=== PATIENT | male | born 1950 | race Caucasian/White ===

== ENCOUNTER 2019-12-25 15:58 | Emergency (ER) | payer MEDICARE, OTHER, SELFPAY ==
[2019-12-25] VITALS (7 sets, daily range): BP systolic 124–152; BP diastolic 70–79; PULSE 56–86; RESP 16–18; TEMP 36.8; O2SAT 94–97; BMI 21.1
--- NOTE | 2019-12-25 16:25 | CTR_ITS ---
PROCEDURE INFORMATION: Exam: CT Abdomen And Pelvis With Contrast Exam date and time: 12/25/2019 4:39 PM Age: 69 years old Clinical indication: Abdominal pain; Localized; Left lower quadrant (llq); Prior surgery; Surgery date: 6+ months; Surgery type: Bicycle Racer shunt; Patient HX: C/O llq abd pain w n/v since this morning TECHNIQUE: Imaging protocol: Computed tomography of the abdomen and pelvis with intravenous contrast. Total DLP: 490.34 mGy-cm Radiation optimization: All CT scans at this facility use at least one of these dose optimization techniques: automated exposure control; mA and/or kV adjustment per patient size (includes targeted exams where dose is matched to clinical indication); or iterative reconstruction. Contrast material: VISI 320; Contrast volume: 95 ml; Contrast route: 20G; COMPARISON: No relevant prior studies available. FINDINGS: Tubes, catheters and devices: There is a SOCCER BALL ASSEMBLER shunt catheter in the abdomen. Liver: There is a 9 mm sized simple cyst in the left lobe of the liver. Gallbladder and bile ducts: There is a calcified gallstone in the gallbladder. Pancreas: Normal. No ductal dilation. Spleen: The spleen is normal. Adrenals: Normal. No mass. Kidneys and ureters: There is a 7 mm benign cyst in the lower pole of the right kidney. There is no evidence of right hydronephrosis. There is moderate left hydronephrosis and there is perinephric stranding and delay in excretion of contrast on the left consistent with obstruction. There is a 6 mm mm size maximum diameter stone in the distal left ureter less than 2 cm from the ureterovesical junction with density of over 1000 Hounsfield units and visible on the cost and risk analysis manager image also. Stomach and bowel: Unremarkable. No obstruction. No mucosal thickening. Appendix: No evidence of appendicitis. Intraperitoneal space: Unremarkable. No free air. No significant fluid collection. Vasculature: Unremarkable. No abdominal aortic aneurysm. Lymph nodes: Unremarkable. No enlarged lymph nodes. Bladder: There is mild thickening of the wall of the urinary bladder which could be due to hypertrophy from chronic outlet obstruction. Reproductive: The prostate demonstrates moderate nonspecific enlargement. The prostate gland demonstrates nonspecific parenchymal calcifications. The seminal vesicles are normal. Bones/joints: The lumbar spine demonstrates mild degenerative changes at multiple levels. Soft tissues: Unremarkable. CT/CT abdomen pelvis w con* [id number] IMPRESSION: Obstructing stone in the distal left ureter COMMENTS: Consistent with the [employer]'s Incidental Findings Committee white paper (J Am Cynthia Radiol 2018): Any incidental cystic renal lesion classified in this report as too small to characterize or simple appearing is likely a benign cyst. No follow-up imaging is recommended for these lesions per consensus recommendations based on imaging criteria. Radiation Dose CTDIVOL = (mGy): DLP = 490.34 (mGy-cm)
--- NOTE | 2019-12-25 16:39 | W.ED.ABDPA2 ---
HPI - Abdominal Pain General: Chief Complaint: Abdominal Pain Stated Complaint: n/v, back pain Time Seen by Provider: 12/25/19 16:13 Source: patient Mode of arrival: ambulatory Limitations: no limitations History of Present Illness: HPI narrative: 69-year-old male with left lower quadrant pain that started 6 AM. He states pain is sharp in nature. Denies any worsening improving factors at this time. Denies any vomiting or diarrhea but has had slight nausea. MD elicited complaint: abdominal pain Pertinent past history: none Onset (ago): hour(s) Pain Consistency: constant Location: LLQ Severity: moderate Quality: stabbing Radiation: none Exacerbating factors: nothing Relieving factors: nothing Associated Symptoms: Denies chills, dysuria and fever(s) Review of Systems Const: Denies: fever, chills, body aches or change in appetite Eyes: Denies: blurry vision or eye discomfort ENMT: Denies: throat pain or dental pain Card: Denies: chest pain Resp: Denies: shortness of breath GI: Reports: abdominal pain : Denies: painful urination Musc: Denies: neck pain or back pain Skin/Breast: Denies: rash Neuro: Denies: headache Psych: Denies: depression Srinivasa/Lymph: Denies: easy bruising All/Imm: Denies: hives PFSH ED PFSH: Social History Smoking and tobacco status: never smoked Physical Exam Const: COMMON NORMALS: no apparent distress, oriented x3 and healthy appearing HENMT: COMMON NORMALS: normocephalic and head/scalp atraumatic HEAD & SCALP: normocephalic and atraumatic Eye: COMMON NORMALS: PERRL and EOMs intact bilaterally PUPIL: Yes PERRL Neck/C-Spine: COMMON NORMALS: full ROM and supple Chest: COMMONS NORMALS: inspection of chest normal and palpation of chest normal Resp: COMMON NORMALS: normal respiratory effort, no retractions, no use of accessory muscles and clear to auscultation bilaterally AUSCULTATION: clear to auscultation bilaterally Cardio: COMMON NORMALS: regular rate, regular rhythm and no murmurs RATE: regular rate RHYTHM: regular rhythm GI: COMMON NORMALS: normal to inspection, nondistended, normoactive bowel sounds, soft to palpation and no masses PALPATION: Yes soft and Yes tender Details: LLQ Extremity: COMMON NORMALS: normal to inspection and full ROM Neuro: COMMON NORMALS: oriented x3, moves all extremities and no focal motor deficits Psych: COMMON NORMALS: mental status grossly normal, thought process normal and cooperative THOUGHT PROCESS: normal thought process Skin: COMMON NORMALS: no rashes or lesions noted and no wounds GENERAL SKIN EXAM: no rashes or lesions noted Course Vital Signs: Vital signs: Vital Signs Temperature 98.2 F 12/25/19 16:09 Pulse Rate 86 12/25/19 19:00 Respiratory Rate 16 12/25/19 19:00 Blood Pressure 124/79 12/25/19 19:00 Pulse Oximetry 94 12/25/19 19:00 MDM - Abdominal Pain MDM Narrative: Medical decision making narrative: Patient presents here with abdominal pain is found to have a kidney stone. Stone is small and he should be able to pass it. We will place him on pain meds and nausea meds and I will have him follow-up with urology. Patient discharged with a strainer and is return to ER if worsening. He understands and agrees the plan. Lab Data: Labs: Lab Results 12/25/19 12/25/19 12/25/19 Range/Units 16:45 16:45 17:19 WBC 11.3 H (4.0-10.0) 10^3/ uL RBC 4.67 (4.1-5.3) 10^6/u L Hgb 14.5 (11.7-16.6) g/dL Hct 44.3 (42.0-52.0) % MCV 94.9 H (80-94) fL MCH 31.0 (28.0-34.0) pg MCHC 32.7 (30.0-36.0) g/dL RDW 13.7 (12.1-15.1) % Plt Count 183 (130-400) 10^3/c mm MPV 11.8 H (7.4-10.4) fL Neut % (Auto) 87.3 % Lymph % (Auto) 8.0 % Dane % (Auto) 4.2 % Eos % (Auto) 0.0 % Baso % (Auto) 0.2 % Neut # (Auto) 9.9 H (1.8-7.7) 10^3/u L Lymph # (Auto) 0.9 (0.8-4.8) 10^3/u L Dane # (Auto) 0.5 (0.2-0.9) 10^3/u L Eos # (Auto) 0.0 (0.0-0.8) 10^3/u L Baso # (Auto) 0.0 (0.0-0.1) 10^3/u L Nucleated RBC % (a uto) 0 % Nucleated RBCs # 0.0 /100WBC Sodium 142 (136-145) mmol/L Potassium 4.3 (3.5-5.1) mmol/L Chloride 105 (98-107) mmol/L Carbon Dioxide 24 (22-29) mmol/L Anion Gap 17.3 (5-19) BUN 19 (8-23) mg/dL Creatinine 1.3 H (0.7-1.2) mg/dL GFR Calculation 54.6 L (90-130) mL/min Glucose 162 H (65-115) mg/dL Calculated Osmolal ity 294 (285-295) mOsm/k g Calcium 9.8 (8.5-10.5) mg/dL Total Bilirubin 0.7 (0.15-1.2) mg/dL AST 17 (0-40) U/L ALT 12 (0-41) U/L Alkaline Phosphata se 120 (40-130) IU/L Total Protein 7.5 (6.6-8.7) g/dL Albumin 4.1 (3.5-5.2) g/dL Globulin 3.4 (1.3-4.6) g/dL Lipase 43 (13-60) U/L Urine Color Yellow (Yellow) Urine Appearance Clear (CLEAR) Urine pH 5 (5-7) Ur Specific Gravit y 1.025 (1.005-1.030) Urine Protein Trace (Negative) Urine Glucose (UA) Trace H (Normal) Urine Ketones 2+ H (Negative) Urine Blood 3+ H (Negative) Urine Nitrate Negative (Negative) Urine Bilirubin Neg (NEGATIVE) Urine Urobilinogen Norm (Negative) mg/dL Ur Leukocyte Christina ase Negative (Negative) Urine RBC 10-15 H (0-2) /hpf Urine WBC 0-4 H (0-5) /hpf Ur Squamous Epith Cells 0-4 H (0-5) Urine Bacteria 1+ H (NONE) Imaging Data ^: CT Abd/Pel: Radiologist's impression: [facility] [address] [address] [address] Scan Report Signed Patient: Raul Mendez Unit #: [id number] : 1950 Age/Sex: 69 / M ADM Date: 12/25/19 Loc: ER Room/Bed: Attending Dr: Ordering Provider/Ordering MD: Alex Rocha MD Date of Service: 12/25/19 Procedure(s): CT abdomen pelvis w con* [id number] Accession Number(s): [id number] Report Number: [id number] PROCEDURE INFORMATION: Exam: CT Abdomen And Pelvis With Contrast Exam date and time: 12/25/2019 4:39 PM Age: 69 years old Clinical indication: Abdominal pain; Localized; Left lower quadrant (llq); Prior surgery; Surgery date: 6+ months; Surgery type: Quality Assurance Tester shunt; Patient HX: C/O llq abd pain w n/v since this morning TECHNIQUE: Imaging protocol: Computed tomography of the abdomen and pelvis with intravenous contrast. Total DLP: 490.34 mGy-cm Radiation optimization: All CT scans at this facility use at least one of these dose optimization techniques: automated exposure control; mA and/or kV adjustment per patient size (includes targeted exams where dose is matched to clinical indication); or iterative reconstruction. Contrast material: VISI 320; Contrast volume: 95 ml; Contrast route: 20G; COMPARISON: No relevant prior studies available. FINDINGS: Tubes, catheters and devices: There is a COLD TYPE ARTIST shunt catheter in the abdomen. Liver: There is a 9 mm sized simple cyst in the left lobe of the liver. Gallbladder and bile ducts: There is a calcified gallstone in the gallbladder. Pancreas: Normal. No ductal dilation. Spleen: The spleen is normal. Adrenals: Normal. No mass. Kidneys and ureters: There is a 7 mm benign cyst in the lower pole of the right kidney. There is no evidence of right hydronephrosis. There is moderate left hydronephrosis and there is perinephric stranding and delay in excretion of contrast on the left consistent with obstruction. There is a 6 mm mm size maximum diameter stone in the distal left ureter less than 2 cm from the ureterovesical junction with density of over 1000 Hounsfield units and visible on the trial consultant image also. Stomach and bowel: Unremarkable. No obstruction. No mucosal thickening. Appendix: No evidence of appendicitis. Intraperitoneal space: Unremarkable. No free air. No significant fluid collection. Vasculature: Unremarkable. No abdominal aortic aneurysm. Lymph nodes: Unremarkable. No enlarged lymph nodes. Bladder: There is mild thickening of the wall of the urinary bladder which could be due to hypertrophy from chronic outlet obstruction. Reproductive: The prostate demonstrates moderate nonspecific enlargement. The prostate gland demonstrates nonspecific parenchymal calcifications. The seminal vesicles are normal. Bones/joints: The lumbar spine demonstrates mild degenerative changes at multiple levels. Soft tissues: Unremarkable. CT/CT abdomen pelvis w con* [id number] IMPRESSION: Obstructing stone in the distal left ureter COMMENTS: Consistent with the [employer]'s Incidental Findings Committee white paper (J Am Cynthia Radiol 2018): Any incidental cystic renal lesion classified in this report as too small to characterize or simple appearing is likely a benign cyst. No follow-up imaging is recommended for these lesions per consensus recommendations based on imaging criteria. Discharge Plan Discharge Patient Disposition: Home, Self-Care Clinical Impression: Calculus of kidney Condition: Stable Prescriptions: [place] 5-325 mg tablet 1 tab PO Q6H PRN (Reason: pain) Qty: 14 RF: 0 Zofran 4 mg tablet 4 mg PO QID PRN (Reason: nausea and vomiting) Qty: 14 RF: 0 Discharge Orders: Discharge Order (Routine); Ordered 12/25/19 Ordered By: Alex Rocha Referrals: Spencer Moran MD [Physician] - Johnny Raza MD [Family Provider] - Discharge Diet: Advance as tolerated Discharge Activity: Resume usual activity Patient Instructions: Kidney Stones (ED) Discharge Date/Time: 12/25/19 19:18 Coding Level of Care Code ED Solar Field Service Technician for Chg Fwd Exam Comprehensive
[2019-12-25] MEDS: sodium chloride 0.9% 1,000 ML 999 ML IV (16:53)
[2019-12-25] MEDS: ondansetron 2 mg/ML SDV 2 mL 4 MG IVP (16:53)
[2019-12-25] MEDS: morphine 4 mg/mL SDV 1 mL IVP (16:54)
[2019-12-25 17:20] LABS: Basophils % 0.2 %; Hematocrit 44.3 % (42.0-52.0); Hemoglobin 14.5 g/dL (11.7-16.6); Lymphocytes # 0.9 10^3/uL (0.8-4.8); Mean Corpuscular HGB Conc 32.7 g/dL (30.0-36.0); Mean Corpuscular Volume 94.9 fL (80-94); Mean Platelet Volume 11.8 fL (7.4-10.4); Monocytes # 0.5 10^3/uL (0.2-0.9); Monocytes % 4.2 %; Neutrophils # 9.9 10^3/uL (1.8-7.7); Neutrophils % 87.3 %; Nucleated Red Blood Cells % 0 %; Platelet Count 183 10^3/cmm (130-400); Red Blood Count 4.67 10^6/uL (4.1-5.3); Red Cell Distribution Width 13.7 % (12.1-15.1); White Blood Count 11.3 10^3/uL (4.0-10.0)
[2019-12-25 17:47] LABS: Alanine Aminotransferase 12 U/L (0-41); Albumin Level 4.1 g/dL (3.5-5.2); Alkaline Phosphatase 120 IU/L (40-130); Anion Gap 17.3 (5-19); Aspartate Amino Transferase 17 U/L (0-40); Blood Urea Nitrogen 19 mg/dL (8-23); Calcium 9.8 mg/dL (8.5-10.5); Carbon Dioxide 24 mmol/L (22-29); Chloride 105 mmol/L (98-107); Globulin 3.4 g/dL (1.3-4.6); Glomerular Filtration Rate 54.6 mL/min (90-130); Glucose 162 mg/dL (65-115); Osmolality Calculated 294 mOsm/kg (285-295); Potassium 4.3 mmol/L (3.5-5.1); Sodium 142 mmol/L (136-145); Total Bilirubin 0.7 mg/dL (0.15-1.2); Total Protein 7.5 g/dL (6.6-8.7)
[2019-12-25] MEDS: iodixanol 320 mg/mL 100mL Btl IV (17:57)
[2019-12-25 18:16] LABS: Lipase 43 U/L (13-60)
[2019-12-25 18:21] LABS: Specific Gravity, Urine 1.025 (1.005-1.030); Urine Appearance Clear (CLEAR); Urine Color Yellow (Yellow); pH Urine 5 (5-7)
[2019-12-25 18:22] LABS: Add Urine Microscopic? YES; Bilirubin Urine Neg (NEGATIVE); Blood Urine 3+ (Negative); Glucose Urine UA Trace (Normal); Ketones Urine 2+ (Negative); Leukocyte Esterase Urine Negative (Negative); Nitrate Urine Negative (Negative); Protein Urine Trace (Negative); Urobilinogen Urine Norm (Negative)
[2019-12-25 18:26] LABS: Add Urine Culture? No; Bacteria Urine 1+; Squamous Epithelial Cell Urine 0-4 (0-5); WBC Urine 0-4 /hpf (0-5)
== END 2019-12-25 19:18 | disposition home or self-care (01) ==
PROVIDERS: Emergency Provider Emergency Medicine; Family Provider Internal Medicine
DX: N20.0 Calculus of kidney (principal)
CPT/HCPCS: 12345; 74177; 80053; 81001; 83690; 85025; 96360; 96361; 96374; 96375; 99283; 99284; A9270; J2270; J2405; J7030; Q9967

== ENCOUNTER 2022-06-29 10:41 | Emergency (ER) | payer MEDICARE, OTHER, SELFPAY ==
[2022-06-29 10:53] VITALS: BP 170/89; PULSE 84; RESP 15; TEMP 36.4; O2SAT 98; BMI 21.1
--- NOTE | 2022-06-29 11:53 | XRR_ITS ---
PROCEDURE INFORMATION: Exam: XR Abdomen Exam date and time: 06/29/2022 12:34 PM Age: 72 years old Clinical indication: Abdominal pain; Generalized; Additional info: Abd pain TECHNIQUE: Imaging protocol: Radiologic exam of the abdomen. Views: Frontal supine view of the abdomen. 1 View. COMPARISON: CT abdomen pelvis w con* [id number] 12/25/2019 5:56 PM FINDINGS: Tubes, catheters and devices: A ventriculoperitoneal shunt is present with the tip in the lower abdomen. Gastrointestinal tract: Normal. No bowel dilation. Organs: Linear metallic densities project on the prostate which may be radioactive seeds. Bones/joints: Unremarkable. XR/XR KUB portable [id number] IMPRESSION: No acute abnormality.
--- NOTE | 2022-06-29 12:18 | W.ED.MALEGU ---
HPI - Male Genitourinary General: Chief complaint: Urogenital-Male Stated complaint: Possible Kidney Stones Time Seen by Provider: 06/29/22 11:47 Source: patient Mode of arrival: ambulatory History of Present Illness: 72-year-old male complains of suprapubic pain and fullness has unable to urinate since last evening. Around 730 last night he emptied his bladder and this morning is only mild dribbles has not had any hematuria no flank pain denies dysuria urgency or frequency. Several years ago he had a TURP procedure done. Denies any other abdominal pain he does state he has been constipated as well. He has remote history of renal stones. Onset (ago): hour(s) Duration: constant Severity: moderate Quality: aching Relieving factors: urination (Unable to urinate) Exacerbating factors: none Associated symptoms: Reports urinary retention; Deny discharge, dysuria, fevers/chills, hematuria, nausea, rash, swelling, urinary incontinence, mass or vomiting Review of Systems Const: Denies: fever(s), chills, body aches, change in appetite, fatigue or malaise ENMT: Denies: throat pain, ear or mastoid pain, nasal discharge or nasal congestion Card: Denies: chest pain, edema, dyspnea on exertion or orthopnea Resp: Denies: dyspnea, productive cough or non-productive cough GI: Denies: nausea or vomiting : Denies: dysuria, urinary incontinence or hematuria Skin/Breast: Denies: rash or pruritus PFSH ED PFSH: Medical History BPH (benign prostatic hyperplasia) Surgical History S/P TURP Social History Smoking and tobacco status: never smoked Physical Exam Const: GENERAL APPEARANCE: cooperative and comfortable ORIENTATION/CONSCIOUSNESS: Yes awake, Yes oriented to person, Yes oriented to place and Yes oriented to time HENMT: COMMON NORMALS: normocephalic, atraumatic and hearing grossly normal bilaterally HEAD & SCALP: normocephalic and atraumatic Resp: COMMON NORMALS: normal respiratory effort, No retractions, No use of accessory muscles and clear to auscultation bilaterally AUSCULTATION: clear to auscultation bilaterally Cardio: COMMON NORMALS: regular rate, regular rhythm and No murmurs present (Cardio) RATE: regular rate RHYTHM: regular rhythm GI: COMMON NORMALS: Soft to palpation and No hepatosplenomegaly present AUSCULTATION: Yes normoactive bowel sounds PALPATION: Yes Soft to palpation, No Tenderness to palpation present (GI), No Guarding due to palpation present (GI) and Yes No hepatosplenomegaly present Extremity: COMMON NORMALS: normal to inspection, capillary refill normal, no clubbing, cyanosis or edema, no calf tenderness and no pedal edema Neuro: SENSORIUM/ORIENTATION: Yes oriented to person, Yes oriented to place and Yes oriented to time Skin: COMMON NORMALS: no rashes or lesions noted GENERAL SKIN EXAM: no rashes or lesions noted Course Vital Signs: Vital signs: Vital Signs Temperature 97.6 F 06/29/22 10:53 Pulse Rate 85 06/29/22 14:13 Respiratory Rate 15 06/29/22 10:53 Blood Pressure 129/70 06/29/22 14:13 Pulse Oximetry 98 06/29/22 10:53 Oxygen Delivery Me thod 06/29/22 10:53 MDM - Male Medical Decision Making Urinary retention no signs of cystitis. Renal function good. Barton placed good relief of symptoms. Leg bag applied discharged home on tamsulosin follow-up with urology. Medical Records I reviewed the patient's medical records. Lab Data I reviewed the patient's lab results. : 06/29/22 12:43 06/29/22 12:43 Radiology Impressions KUB X-Ray 06/29/22 11:53 IMPRESSION: No acute abnormality. Laboratory Results WBC 9.7 10^3/uL (4.0-10.0) 06/29/22 12:43 RBC 4.54 10^6/uL (4.1-5.3) 06/29/22 12:43 Hgb 14.7 g/dL (11.7-16.6) 06/29/22 12:43 Hct 43.4 % (42.0-52.0) 06/29/22 12:43 MCV 95.6 fl (80-94) H 06/29/22 12:43 MCH 32.4 pg (28.0-34.0) 06/29/22 12:43 MCHC 33.9 g/dL (30.0-36.0) 06/29/22 12:43 RDW 13.6 % (12.1-15.1) 06/29/22 12:43 Plt Count 193 10^3/cmm (130-400) 06/29/22 12:43 MPV 11.5 fL (7.4-10.4) H 06/29/22 12:43 Neut % (Auto) 85.8 % 06/29/22 12:43 Lymph % (Auto) 10.7 % 06/29/22 12:43 [place] % (Auto) 2.6 % 06/29/22 12:43 Eos % (Auto) 0.3 % 06/29/22 12:43 Baso % (Auto) 0.3 % 06/29/22 12:43 Neut # (Auto) 8.32 10^3/uL (1.8-7.7) H 06/29/22 12:43 Lymph # (Auto) 1.0 10^3/uL (0.8-4.8) 06/29/22 12:43 [place] # (Auto) 0.3 10^3/uL (0.2-0.9) 06/29/22 12:43 Eos # (Auto) 0.0 10^3/uL (0.0-0.8) 06/29/22 12:43 Baso # (Auto) 0.0 10^3/uL (0.0-0.1) 06/29/22 12:43 Nucleated RBC % (auto) 0 % 06/29/22 12:43 Nucleated RBCs # 0.0 /100WBC 06/29/22 12:43 Sodium 141 mmol/L (136-145) 06/29/22 12:43 Potassium 4.9 mmol/L (3.5-5.1) 06/29/22 12:43 Chloride 104 mmol/L (98-107) 06/29/22 12:43 Carbon Dioxide 27 mmol/L (22-29) 06/29/22 12:43 Anion Gap 14.9 (5-19) 06/29/22 12:43 BUN 13 mg/dL (8-23) 06/29/22 12:43 Creatinine 0.8 mg/dL (0.7-1.2) 06/29/22 12:43 GFR Calculation Not Reportable 06/29/22 12:43 Glucose 172 mg/dL (65-115) H 06/29/22 12:43 Calculated Osmolality 296 mOsm/kg (285-295) H 06/29/22 12:43 Calcium 9.5 mg/dL (8.5-10.5) 06/29/22 12:43 Total Bilirubin 0.9 mg/dL (0.15-1.2) 06/29/22 12:43 AST 16 U/L (0-40) 06/29/22 12:43 ALT 15 U/L (0-41) 06/29/22 12:43 Alkaline Phosphatase 113 U/L (40-130) 06/29/22 12:43 Total Protein 7.3 g/dL (6.6-8.7) 06/29/22 12:43 Albumin 4.1 g/dL (3.5-5.2) 06/29/22 12:43 Globulin 3.2 g/dL (1.3-4.6) 06/29/22 12:43 Discharge Plan Discharge Patient Disposition: Home Clinical Impression: Acute urinary retention, BPH (benign prostatic hyperplasia) Condition: Stable Prescriptions: New tamsulosin [Flomax] 0.4 mg capsule 0.4 mg PO DAILY Qty: 30 0RF No Action atorvastatin 20 mg tablet 20 mg PO DAILY Synthroid 25 mcg tablet 25 mcg PO DAILY lorazepam 0.5 mg tablet 0.5 mg PO BID PRN (Reason: Anxiety) lisinopril 5 mg tablet 5 mg PO DAILY betamethasone dipropionate 0.05 % ointment 1 applic TOPICAL BID PRN (Reason: Rash) sertraline 50 mg tablet 50 mg PO DAILY Stool Softener 50 mg Capsule 50 mg PO DAILY Miralax 17 gram/dose Powder 4 g PO DAILY Zyrtec 10 mg Capsule 10 mg PO DAILY cefdinir 300 mg capsule 300 mg PO BID 10 Days Qty: 20 0RF Discharge Orders: Discharge ED (Routine); Ordered 06/29/22 Ordered By: Rickey Magaña Referrals: Johnny Raza MD [Primary Care Provider] - Discharge Activity: Increase activity as tolerated Patient Instructions: Opioid Safety, Pain Management Activity Restrictions/Additional Instructions: Leave Barton in place until you are seen by Dr. Moran. Case management make arrangements for follow-up with Dr. Moran our urologist. Coding Level of Care Code ED Technical Healthcare Consultant for Chg Fwd Exam Detailed
[2022-06-29 12:59] LABS: Basophils % 0.3 %; Eosinophils % 0.3 %; Hematocrit 43.4 % (42.0-52.0); Hemoglobin 14.7 g/dL (11.7-16.6); Lymphocytes % 10.7 %; Mean Corpuscular HGB Conc 33.9 g/dL (30.0-36.0); Mean Corpuscular Hemoglobin 32.4 pg (28.0-34.0); Mean Corpuscular Volume 95.6 fl (80-94); Mean Platelet Volume 11.5 fL (7.4-10.4); Monocytes # 0.3 10^3/uL (0.2-0.9); Monocytes % 2.6 %; Neutrophils # 8.32 10^3/uL (1.8-7.7); Neutrophils % 85.8 %; Nucleated Red Blood Cells % 0 %; Platelet Count 193 10^3/cmm (130-400); Red Blood Count 4.54 10^6/uL (4.1-5.3); Red Cell Distribution Width 13.6 % (12.1-15.1); White Blood Count 9.7 10^3/uL (4.0-10.0)
[2022-06-29 13:21] LABS: Alanine Aminotransferase 15 U/L (0-41); Albumin Level 4.1 g/dL (3.5-5.2); Alkaline Phosphatase 113 U/L (40-130); Anion Gap 14.9 (5-19); Aspartate Amino Transferase 16 U/L (0-40); Blood Urea Nitrogen 13 mg/dL (8-23); Calcium 9.5 mg/dL (8.5-10.5); Carbon Dioxide 27 mmol/L (22-29); Chloride 104 mmol/L (98-107); Globulin 3.2 g/dL (1.3-4.6); Glucose 172 mg/dL (65-115); Osmolality Calculated 296 mOsm/kg (285-295); Potassium 4.9 mmol/L (3.5-5.1); Sodium 141 mmol/L (136-145); Total Bilirubin 0.9 mg/dL (0.15-1.2); Total Protein 7.3 g/dL (6.6-8.7)
[2022-06-29 14:12] VITALS: BP 128/71
[2022-06-29 14:13] VITALS: BP 129/70; PULSE 85
--- NOTE | 2022-06-29 15:27 | DCPLANNER ---
Addendum entered by Kiki Rod 09/13/22 10:24: this appointment was cancelled Addendum entered by Kiki Rod 07/12/22 11:08: Patient has a follow up appointment scheduled for Saturday, July 16, 2022 at 8:00 with Gloria at urology. Clinic will call patient with appointment information. Original Note: route service manager had message to schedule a follow up appointment for patient with urology. route service manager sent patients information to the front office staff at urology. Patients information will be printed and reviewed. Clinic will call patient with appointment information.
== END 2022-06-29 14:15 | disposition home or self-care (01) ==
PROVIDERS: Physician Assistant; Emergency Provider Family Medicine; PCP Internal Medicine
DX: N40.1 Benign prostatic hyperplasia with lower urinary tract symptoms (principal); R33.8 Other retention of urine
CPT/HCPCS: 36415; 51702; 74018; 80053; 85025; 99284

== ENCOUNTER 2022-07-06 11:03 | Emergency (ER) | payer MEDICARE, OTHER, SELFPAY ==
[2022-07-06 11:39] VITALS: BP 131/83; PULSE 88; RESP 16; TEMP 36.5; O2SAT 95; BMI 21.1
--- NOTE | 2022-07-06 12:15 | W.ED.MALEGU ---
HPI - Male Genitourinary General: Chief complaint: Urogenital-Male Stated complaint: catheter problems Time Seen by Provider: 07/06/22 11:41 History of Present Illness: 72-year-old male presenting today with continued urinary retention, abdominal pain, and foul-smelling urine. Patient had a urinary catheter placed approximately 5 days ago. Notes it was working well for approximately 5 days. Before started to work poorly again. Patient has a constant urge to urinate. But notes he is not getting very much out through his catheter. He notes that he is getting foul-smelling urine with some sediment in it. He denies fevers or chills. Denies nausea or vomiting. He notes a baseline enlarged prostate. No new medications. Review of Systems General: Reports: 10 or more systems reviewed and unremarkable except in HPI and below PFSH ED PFSH: Medical History (Updated 07/06/22 @ 13:11 by Andrés Negron DO) BPH (benign prostatic hyperplasia) Surgical History (Updated 06/29/22 @ 12:20 by Rickey Magaña DO) S/P TURP Social History Smoking and tobacco status: never smoked Physical Exam Const: COMMON NORMALS: no acute distress, patient oriented x3 and alert GENERAL APPEARANCE: cooperative ORIENTATION/CONSCIOUSNESS: Yes awake, Yes oriented to person, Yes oriented to place and Yes oriented to time HENMT: COMMON NORMALS: normocephalic, atraumatic, external ears normal, Normal external nose present and moist oral mucous membranes HEAD & SCALP: normal to inspection, normocephalic and atraumatic NOSE: Normal external nose present GENERAL EAR: hearing grossly impaired EXTERNAL EAR: Yes external ears normal Eye: COMMON NORMALS: Equal, round and reactive pupils present, EOMs intact bilaterally, conjunctivae normal and no scleral icterus GENERAL EYE: appearance normal, both eyes and all related structures EYELID: eyelids normal CONJUNCTIVA: Yes conjunctivae normal SCLERA: sclerae normal PUPIL: Yes Equal, round and reactive pupils present Neck/C-Spine: COMMON NORMALS: full ROM, supple and no JVD GENERAL: Yes normal visual inspection Lymph: LYMPHATIC: no lymphadenopathy noted and no lymphedema noted Chest: COMMONS NORMALS: normal inspection of the chest Resp: COMMON NORMALS: normal respiratory effort, No retractions and No use of accessory muscles Cardio: COMMON NORMALS: no JVD, regular rate and regular rhythm RATE: regular rate RHYTHM: regular rhythm GI: COMMON NORMALS: Normal to inspection, nondistended, normoactive bowel sounds present : COMMON NORMALS: Yes no CVA tenderness BLADDER/KIDNEY EXAM: Yes no CVA tenderness Back/Pelvis: COMMON NORMALS: no CVA tenderness and thoracic and lumbar spine normal to inspection Extremity: COMMON NORMALS: normal to inspection, full ROM and capillary refill normal GENERAL: Yes normal exam except as noted Neuro: COMMON NORMALS: patient oriented x3, CN's II-XII intact bilaterally, moves all extremities, no focal motor deficits, no sensory deficits noted and gait normal SENSORIUM/ORIENTATION: Yes alert, Yes oriented to person, Yes oriented to place and Yes oriented to time Psych: COMMON NORMALS: mental status grossly normal, Normal thought process present, cooperative and normal affect THOUGHT PROCESS: Normal thought process present Skin: COMMON NORMALS: no rashes or lesions noted and no wounds GENERAL SKIN EXAM: no rashes or lesions noted Course Vital Signs: Vital signs: Vital Signs Temperature 97.7 F 07/06/22 11:39 Pulse Rate 77 07/06/22 12:24 Respiratory Rate 16 07/06/22 11:39 Blood Pressure 108/72 07/06/22 12:24 Pulse Oximetry 95 07/06/22 12:24 Oxygen Delivery Me thod 07/06/22 11:39 MDM - Male Medical Decision Making 72-year-old male presenting today with urinary catheter issues. Urinalysis suggestive of UTI. Patient was given 2 g ceftriaxone here. Catheter was changed out. Will place patient on cefdinir for suspected prostatitis at home. Patient was given strict return precautions and recommended routine outpatient follow-up. Lab Data Laboratory Results Urine Color Yellow (Yellow) 07/06/22 12:20 Urine Appearance Cloudy (CLEAR) A 07/06/22 12:20 Urine pH 9 (5-7) H 07/06/22 12:20 Ur Specific Ronan 1.010 (1.005-1.030) 07/06/22 12:20 Urine Protein 1+ (Negative) H 07/06/22 12:20 Urine Glucose (UA) Norm (Normal) 07/06/22 12:20 Urine Ketones Negative (Negative) 07/06/22 12:20 Urine Blood 2+ (Negative) H 07/06/22 12:20 Urine Nitrate Positive (Negative) H 07/06/22 12:20 Urine Bilirubin Neg (Negative) 07/06/22 12:20 Prot Sulfosalicylic Acd Positive (Negative) 07/06/22 12:20 Urine Urobilinogen Norm mg/dL (Negative) 07/06/22 12:20 Ur Leukocyte Esterase 2+ (Negative) H 07/06/22 12:20 Urine RBC 0-4 /hpf (0-2) H 07/06/22 12:20 Urine WBC >100 /hpf (0-5) H 07/06/22 12:20 Ur Squamous Epith Cells 0-4 /hpf (0-5) H 07/06/22 12:20 Triple Phos Crystals 55-80 /hpf H 07/06/22 12:20 Amorphous Sediment 2+ /hpf 07/06/22 12:20 Urine Bacteria 4+ /hpf (NONE) H 07/06/22 12:20 Discharge Plan Discharge Patient Disposition: Home Clinical Impression: Prostatitis Condition: Stable Prescriptions: New cefdinir 300 mg capsule 300 mg PO BID 10 Days Qty: 20 0RF No Action tamsulosin [Flomax] 0.4 mg capsule 0.4 mg PO DAILY Qty: 30 0RF atorvastatin 20 mg tablet 20 mg PO DAILY Synthroid 25 mcg tablet 25 mcg PO DAILY lorazepam 0.5 mg tablet 0.5 mg PO BID PRN (Reason: Anxiety) lisinopril 5 mg tablet 5 mg PO DAILY betamethasone dipropionate 0.05 % ointment 1 applic TOPICAL BID PRN (Reason: Rash) sertraline 50 mg tablet 50 mg PO DAILY Stool Softener 50 mg Capsule 50 mg PO DAILY Miralax 17 gram/dose Powder 4 g PO DAILY Zyrtec 10 mg Capsule 10 mg PO DAILY Discharge Orders: Discharge ED (Routine); Ordered 07/06/22 Ordered By: Andrés Negron Referrals: Johnny Raza MD [Primary Care Provider] - Patient Instructions: Opioid Safety, Pain Management Coding Level of Care Code ED [facility] Detox[facility] Specialist for Adelaida Nogueira
[2022-07-06 12:24] VITALS: BP 108/72; PULSE 77; O2SAT 95
[2022-07-06 12:56] LABS: Add Urine Culture? Yes; Add Urine Microscopic? YES; Amorphous Sediment Urine 2+ /hpf; Bacteria Urine 4+ /hpf; Bilirubin Urine Neg (Negative); Blood Urine 2+ (Negative); Glucose Urine UA Norm (Normal); Ketones Urine Negative (Negative); Leukocyte Esterase Urine 2+ (Negative); Nitrate Urine Positive (Negative); Protein Urine 1+ (Negative); RBC Urine 0-4 /hpf (0-2); Squamous Epithelial Cell Urine 0-4 /hpf (0-5); Sulfosalicylic Acid Urine Positive (Negative); Triple Phosphate Crystal Urine 55-80 /hpf; Urine Appearance Cloudy (CLEAR); Urine Color Yellow (Yellow); Urobilinogen Urine Norm (Negative); WBC Urine >100 /hpf (0-5); pH Urine 9 (5-7)
[2022-07-06] MEDS: cefTRIAXone 2,000 MG in sodium chloride 0.9% (plus) 50 ML 100 MG IV (13:45)
== END 2022-07-06 14:01 | disposition home or self-care (01) ==
PROVIDERS: Emergency Provider Emergency Medicine; PCP Internal Medicine
DX: N41.9 Inflammatory disease of prostate, unspecified (principal)
CPT/HCPCS: 51702; 81001; 87077; 87086; 87186; 96374; 99284; J0696

== ENCOUNTER → 2023-04-25 11:47 | Outpatient (BNVA) | payer MEDICARE, OTHER, SELFPAY | PROVIDERS: PCP Internal Medicine; Visit Provider Registered Nurse Neonatal Intensive Care | DX: R31.9 Hematuria, unspecified (principal) | CPT/HCPCS: 81000; 87077; 87086; 87184 ==

== ENCOUNTER → 2023-06-13 09:13 | Outpatient (BNVA) | payer MEDICARE, OTHER, SELFPAY | PROVIDERS: PCP Internal Medicine; Visit Provider Internal Medicine | DX: E11.9 Type 2 diabetes mellitus without complications (principal); E78.2 Mixed hyperlipidemia; E03.9 Hypothyroidism, unspecified; Z79.890 Hormone replacement therapy; Z79.84 Long term (current) use of oral hypoglycemic drugs | CPT/HCPCS: 99204 ==

== ENCOUNTER 2023-09-02 07:46 | Outpatient (CLI) | payer MEDICARE, OTHER, SELFPAY ==
[2023-09-02 09:14] LABS: Alanine Aminotransferase 22 U/L (0-41); Albumin Level 4.3 g/dL (3.5-5.2); Alkaline Phosphatase 110 U/L (40-130); Anion Gap 12.3 (5-19); Aspartate Amino Transferase 22 U/L (0-40); Blood Urea Nitrogen 15 mg/dL (8-23); Calcium 9.6 mg/dL (8.5-10.5); Carbon Dioxide 28 mmol/L (22-29); Chloride 105 mmol/L (98-107); Chol HDL Ratio 2.98 mg/dL (1.0-5.00); Cholesterol 140 mg/dL (0-200); Free T4 Free Thyroxine 1.21 ng/dL (0.82-1.77); Glucose 175 mg/dL (65-115); HDL Cholesterol 47 mg/dL (60-100); LDL Cholesterol Calculated 74 mg/dL (50-129); LDL HDL Ratio 1.57 RATIO (0.00-3.22); Osmolality Calculated 297 mOsm/kg (285-295); Potassium 4.3 mmol/L (3.5-5.1); Sodium 141 mmol/L (136-145); Thyroid Stimulating Hormone 3.81 uIU/mL (0.27-4.20); Total Bilirubin 0.4 mg/dL (0.15-1.2); Total Protein 7.3 g/dL (6.6-8.7); Triglycerides 96 mg/dL (0-150)
[2023-09-02 09:32] LABS: Creatinine Urine, Random 225 mg/dL (39-259); Microalbum Creatinine Ratio Ur 9 mg/dL (0-20); Microalbumin Random Urine 2 ug/dL (0-20)
[2023-09-02 10:42] LABS: Estmated Average Glucose 154
== END 2023-09-02 07:47 | disposition home or self-care (01) ==
LOC: LAB 07:47
PROVIDERS: PCP Internal Medicine; Visit Provider Internal Medicine
DX: E11.9 Type 2 diabetes mellitus without complications (principal); E78.2 Mixed hyperlipidemia; E03.9 Hypothyroidism, unspecified
CPT/HCPCS: 36415; 80053; 80061; 82044; 83036; 84439; 84443

== ENCOUNTER → 2023-09-06 11:02 | Outpatient (BNVA) | payer MEDICARE, OTHER, SELFPAY | PROVIDERS: PCP Internal Medicine; Visit Provider Internal Medicine | DX: E11.9 Type 2 diabetes mellitus without complications (principal); E78.2 Mixed hyperlipidemia; E03.9 Hypothyroidism, unspecified; Z79.890 Hormone replacement therapy | CPT/HCPCS: 99214 ==

== ENCOUNTER 2023-11-27 09:40 | Outpatient (CLI) | payer MEDICARE, OTHER, SELFPAY ==
[2023-11-27 10:32] LABS: Estmated Average Glucose 171; Hemoglobin A1C 7.6 % (4.0-6.0)
[2023-11-27 10:39] LABS: Creatinine Urine, Random 174 mg/dL (39-259); Microalbum Creatinine Ratio Ur 11 mg/dL (0-20); Microalbumin Random Urine 2 ug/dL (0-20)
[2023-11-27 11:00] LABS: Chol HDL Ratio 3.07 mg/dL (1.0-5.00); Cholesterol 138 mg/dL (0-200); Free T4 Free Thyroxine 1.17 ng/dL (0.82-1.77); HDL Cholesterol 45 mg/dL (60-100); LDL Cholesterol Calculated 73 mg/dL (50-129); LDL HDL Ratio 1.62 RATIO (0.00-3.22); Thyroid Stimulating Hormone 4.43 uIU/mL (0.27-4.20); Triglycerides 101 mg/dL (0-150)
== END 2023-11-27 09:41 | disposition home or self-care (01) ==
PROVIDERS: PCP Internal Medicine; Visit Provider Internal Medicine
DX: E11.9 Type 2 diabetes mellitus without complications (principal); E78.2 Mixed hyperlipidemia; E03.9 Hypothyroidism, unspecified
CPT/HCPCS: 36415; 80061; 82044; 83036; 84439; 84443

== ENCOUNTER → 2023-12-03 09:31 | Outpatient (BNVA) | payer MEDICARE, OTHER, SELFPAY | PROVIDERS: PCP Internal Medicine; Visit Provider Internal Medicine | DX: E55.9 Vitamin D deficiency, unspecified (principal); E11.9 Type 2 diabetes mellitus without complications; E78.2 Mixed hyperlipidemia; E03.9 Hypothyroidism, unspecified; Z79.890 Hormone replacement therapy; Z79.85 Long-term (current) use of injectable non-insulin antidiabetic drugs | CPT/HCPCS: 99214 ==

== ENCOUNTER → 2024-03-02 10:57 | Outpatient (BNVA) | payer MEDICARE, OTHER, SELFPAY | PROVIDERS: PCP Internal Medicine; Visit Provider Internal Medicine | DX: E11.9 Type 2 diabetes mellitus without complications (principal); E78.2 Mixed hyperlipidemia; E03.9 Hypothyroidism, unspecified | CPT/HCPCS: 36415; 80053; 80061; 82044; 82306; 83036; 84439; 84443 ==

== ENCOUNTER 2024-08-25 08:15 | Outpatient (CLI) | payer MEDICARE, OTHER, SELFPAY ==
[2024-08-25 09:02] LABS: Estmated Average Glucose 163; Hemoglobin A1C 7.3 % (4.0-6.0)
[2024-08-25 09:07] LABS: Creatinine Urine, Random 281 mg/dL (39-259); Microalbum Creatinine Ratio Ur 11 mg/dL (0-20); Microalbumin Random Urine 3 ug/dL (0-20)
[2024-08-25 09:18] LABS: Alanine Aminotransferase 16 U/L (0-41); Albumin Level 4.4 g/dL (3.5-5.2); Alkaline Phosphatase 113 U/L (40-130); Anion Gap 16.4 (5-19); Aspartate Amino Transferase 19 U/L (0-40); Blood Urea Nitrogen 16 mg/dL (8-23); Calcium 9.3 mg/dL (8.5-10.5); Carbon Dioxide 26 mmol/L (22-29); Chloride 103 mmol/L (98-107); Chol HDL Ratio 3.18 mg/dL (1.0-5.00); Cholesterol 127 mg/dL (0-200); Free T4 Free Thyroxine 1.23 ng/dL (0.82-1.77); Globulin 2.8 g/dL (1.3-4.6); Glucose 159 mg/dL (65-115); HDL Cholesterol 40 mg/dL (60-100); LDL Cholesterol Calculated 60 mg/dL (50-129); Osmolality Calculated 297 mOsm/kg (285-295); Potassium 4.4 mmol/L (3.5-5.1); Sodium 141 mmol/L (136-145); Thyroid Stimulating Hormone 5.28 uIU/mL (0.27-4.20); Total Bilirubin 0.8 mg/dL (0.15-1.2); Total Protein 7.2 g/dL (6.6-8.7); Triglycerides 137 mg/dL (0-150)
== END 2024-08-25 08:16 | disposition home or self-care (01) ==
PROVIDERS: PCP Internal Medicine; Visit Provider Internal Medicine
DX: E11.9 Type 2 diabetes mellitus without complications (principal); E78.2 Mixed hyperlipidemia; E03.9 Hypothyroidism, unspecified
CPT/HCPCS: 36415; 80053; 80061; 82044; 83036; 84439; 84443

== ENCOUNTER → 2024-08-31 09:20 | Outpatient (BNVA) | payer MEDICARE, OTHER, SELFPAY | PROVIDERS: PCP Internal Medicine; Visit Provider Internal Medicine | DX: E11.9 Type 2 diabetes mellitus without complications (principal); E78.2 Mixed hyperlipidemia; E03.9 Hypothyroidism, unspecified; E55.9 Vitamin D deficiency, unspecified; Z79.890 Hormone replacement therapy; Z79.84 Long term (current) use of oral hypoglycemic drugs | CPT/HCPCS: 99214 ==

== ENCOUNTER 2025-02-24 10:22 | Outpatient (CLI) | payer MEDICARE, OTHER, SELFPAY ==
[2025-02-24 11:27] LABS: Estmated Average Glucose 186; Hemoglobin A1C 8.1 % (4.0-6.0)
[2025-02-24 11:29] LABS: Creatinine Urine, Random 210 mg/dL (39-259); Microalbum Creatinine Ratio Ur 10 mg/dL (0-20); Microalbumin Random Urine 2 ug/dL (0-20)
[2025-02-24 11:48] LABS: Alanine Aminotransferase 28 U/L (0-41); Albumin Level 4.3 g/dL (3.5-5.2); Alkaline Phosphatase 113 U/L (40-130); Anion Gap 15.4 (5-19); Aspartate Amino Transferase 25 U/L (0-40); Blood Urea Nitrogen 23 mg/dL (8-23); Calcium 9.7 mg/dL (8.5-10.5); Carbon Dioxide 28 mmol/L (22-29); Chloride 101 mmol/L (98-107); Chol HDL Ratio 3.15 mg/dL (1.0-5.00); Cholesterol 126 mg/dL (0-200); Free T4 Free Thyroxine 1.19 ng/dL (0.82-1.77); Globulin 3.1 g/dL (1.3-4.6); Glucose 195 mg/dL (65-115); HDL Cholesterol 40 mg/dL (60-100); LDL Cholesterol Calculated 60 mg/dL (50-129); Osmolality Calculated 299 mOsm/kg (285-295); Potassium 4.4 mmol/L (3.5-5.1); Sodium 140 mmol/L (136-145); Thyroid Stimulating Hormone 4.67 uIU/mL (0.27-4.20); Total Bilirubin 0.7 mg/dL (0.15-1.2); Total Protein 7.4 g/dL (6.6-8.7); Triglycerides 131 mg/dL (0-150)
[2025-02-24 12:22] LABS: 25 Hydroxy Vitamin D 26 ng/mL (30-100)
== END 2025-02-24 10:23 | disposition home or self-care (01) ==
LOC: LAB 10:32
PROVIDERS: PCP Internal Medicine; Visit Provider Internal Medicine
DX: E11.9 Type 2 diabetes mellitus without complications (principal); E78.2 Mixed hyperlipidemia; E03.9 Hypothyroidism, unspecified; E55.9 Vitamin D deficiency, unspecified
CPT/HCPCS: 36415; 80053; 80061; 82044; 82306; 83036; 84439; 84443

== ENCOUNTER → 2025-03-01 09:26 | Outpatient (BNVA) | payer MEDICARE, OTHER, SELFPAY | PROVIDERS: PCP Internal Medicine; Visit Provider Internal Medicine | DX: E11.9 Type 2 diabetes mellitus without complications (principal); E78.2 Mixed hyperlipidemia; E03.9 Hypothyroidism, unspecified; E55.9 Vitamin D deficiency, unspecified | CPT/HCPCS: 99214 ==